=== PATIENT | female | born 1970 | race Caucasian/White ===

== ENCOUNTER 2019-04-17 21:41 | Emergency (ER) | payer MEDICARE, MEDICAID ==
[~2019-04-17] VITALS: Ht 154.9 cm; Wt 113.6 kg
[~2019-04-17 21:41] MED LIST: ASEN10TA8 SL; DOCU250C91 PO; FISH1CAP49 PO; FLUP5 PO; HYDR50CA10 PO; LEVO25TA9 PO; LISI-660 PO; METF-960 PO; PANT40TA25 PO; SIMV-259 PO; SITA50 PO
[2019-04-17 22:48] LABS: GLUCOSE,POINT OF CARE 125 MG/DL (70-110)
[2019-04-18] MEDS ORDERED: ACETAMINOPHEN 500 MG TABLET PO ONE (01:15)
[2019-04-18 03:00] LABS: BASOPHILS % (AUTO) 0.5 % (0.0-2.0); EOSINOPHILS % (AUTO) 1.6 % (1.0-6.0); HEMATOCRIT 43.4 % (36-46); HEMOGLOBIN 14.9 g/dL (12.0-16.0); LYMPHOCYTES # (AUTO) 1.5 K/uL (1.0-4.8); LYMPHOCYTES % (AUTO) 16.5 % (22.0-44.0); MEAN CORPUSCULAR HEMOGLOBIN 31.5 pg (26.0-34.0); MEAN CORPUSCULAR HGB CONC 34.4 G/dL (31.0-37.0); MEAN CORPUSCULAR VOLUME 92 fL (80-100); MONOCYTES # (AUTO) 0.7 K/uL (0.1-1.0); MONOCYTES % (AUTO) 7.4 % (2.0-9.0); NEUTROPHILS # (AUTO) 6.8 K/uL (1.8-7.7); PLATELET COUNT (AUTO) 279 K/uL (150-450); RED BLOOD CELL COUNT(AUTO) 4.74 MIL/uL (4.00-5.20); RED CELL DISTRIBUTION WIDTH 14.3 % (11.5-14.5)
[2019-04-18 03:12] LABS: ANION GAP 9 mmol/L (8-16); CALCIUM, TOTAL 9.2 mg/dL (8.8-10.5); CARBON DIOXIDE 27 mmol/L (22-29); CHLORIDE 102 mmol/L (98-107); CREATININE 0.77 mg/dL (0.60-1.30); GLOMERULAR FILTR. RATE CALC > 60 mL/min (>60); GLUCOSE,RANDOM 144 mg/dL (70-110); POTASSIUM 3.8 mmol/L (3.5-5.1); SODIUM SERUM 138 mmol/L (136-145); UREA NITROGEN, BLOOD 8 mg/dL (7-18)
[2019-04-18 03:24] LABS: ALANINE AMINOTRANSFERASE 20 U/L (12-78); ALBUMIN 3.3 g/dL (3.4-5.0); ALKALINE PHOSPHATASE 104 U/L (46-116); ASPARTATE AMINOTRANSFERASE 15 U/L (15-37); BILIRUBIN,TOTAL 0.5 mg/dL (0.1-1.0); HCG,QUANTITATIVE 2 mIU/mL (0-6); TOTAL PROTEIN, SERUM 7.3 g/dL (6.4-8.2)
[2019-04-18 05:54] VITALS: BP 122/68
== END 2019-04-18 05:59 | disposition home or self-care (01) ==
LOC: EMS 21:43
DX: F20.9 Schizophrenia, unspecified (principal); R51 Headache; M54.6 Pain in thoracic spine; E11.9 Type 2 diabetes mellitus without complications; I10 Essential (primary) hypertension; F17.210 Nicotine dependence, cigarettes, uncomplicated; Z79.899 Other long term (current) drug therapy; Z98.51 Tubal ligation status; Z59.0 Homelessness; W18.09XA Striking against other object with subsequent fall, initial encounter; Y93.89 Activity, other specified; Y92.89 Other specified places as the place of occurrence of the external cause; Y99.8 Other external cause status
CPT/HCPCS: 36415; 70450; 72128; 80053; 82962; 84702; 85025; 99284; G0480

== ENCOUNTER 2019-04-19 14:03 | Inpatient (IN) | payer MEDICARE, MEDICAID ==
[~2019-04-19] VITALS: Ht 170.2 cm; Wt 129.7 kg
[2019-04-19 16:33] VITALS: BP 108/58
[2019-04-19] MEDS ORDERED: ZOLPIDEM TARTRATE 10 MG TABLET PO PRN (16:45)
[2019-04-19] MEDS ORDERED: QUEtiapine FUMARATE 100 MG TABLET PO PRN (16:45)
[2019-04-19] MEDS ORDERED: PNEUMOCOCCAL VACCINE POLYVALENT 0.5 ML VIAL [PPSV23] IM ONE (17:00)
[2019-04-19 18:29] VITALS: BP 135/85
[2019-04-19] MEDS ORDERED: CloNIDine HCL 0.1 MG TABLET PO PRN (18:30)
[2019-04-19] MEDS ORDERED: IBUPROFEN 600 MG TABLET PO PRN (18:30)
[2019-04-19] MEDS ORDERED: BACITRACIN 28.4 GM OINTMENT TP PRN (18:30)
[2019-04-19] MEDS ORDERED: ALBUTEROL SULFATE HFA 90 MCG/PUFF 8 GM INHALER IH PRN (18:30)
[2019-04-19] MEDS ORDERED: PETROLATUM,WHITE 28 GM JELLY TP PRN (18:30)
[2019-04-19] MEDS ORDERED: MAGNESIUM HYDROXIDE SUSPENSION 30 ML UDCUP PO PRN (18:30)
[2019-04-19] MEDS ORDERED: LOPERAMIDE HCL 2 MG CAPSULE PO PRN (18:30)
[2019-04-19] MEDS ORDERED: ONDANSETRON HCL 4 MG TABLET PO PRN (18:30)
[2019-04-19] MEDS ORDERED: MAG HYDROX/AL HYDROX/SIMETH ES 30 ML SUSPENSION UDCUP PO PRN (18:30)
[2019-04-19] MEDS: LORazepam 2 MG TABLET PO PRN (18:42)
[2019-04-19] MEDS ORDERED: GLUCAGON,HUMAN RECOMBINANT 1 MG VIAL IM PRN (20:30)
[2019-04-19] MEDS: SIMVASTATIN 10 MG TABLET PO SCH (20:31)
[2019-04-19 20:49] LABS: GLUCOMETER DEV NAME(LOC) BV3S.; GLUCOSE,POINT OF CARE 135 MG/DL (70-110)
[2019-04-20] MEDS: LEVOTHYROXINE SODIUM 25 MCG TABLET PO SCH (06:24)
[2019-04-20 06:38] VITALS: BP 122/68
[2019-04-20 06:40] LABS: GLUCOMETER DEV NAME(LOC) BV3S.; GLUCOSE,POINT OF CARE 129 MG/DL (70-110)
[2019-04-20 08:01] VITALS: BP 155/83
[2019-04-20 08:54] LABS: ALANINE AMINOTRANSFERASE 23 U/L (12-78); ALKALINE PHOSPHATASE 99 U/L (46-116); ANION GAP 8 mmol/L (8-16); ASPARTATE AMINOTRANSFERASE 19 U/L (15-37); BILIRUBIN,TOTAL 0.3 mg/dL (0.1-1.0); CALCIUM, TOTAL 8.4 mg/dL (8.8-10.5); CARBON DIOXIDE 27 mmol/L (22-29); CHLORIDE 102 mmol/L (98-107); CHOL/HDL RATIO 5.9 (3.9-5.7); CHOLESTEROL 154 mg/dL (131-200); CREATININE 0.79 mg/dL (0.60-1.30); GLOMERULAR FILTR. RATE CALC > 60 mL/min (>60); GLUCOSE,RANDOM 193 mg/dL (70-110); HDL CHOLESTEROL 26 mg/dL (40-60); LDL CHOL (CALC.) 108 mg/dL (0-130); POTASSIUM 4.3 mmol/L (3.5-5.1); SODIUM SERUM 137 mmol/L (136-145); TRIGLYCERIDES 99 mg/dL (15-150); UREA NITROGEN, BLOOD 9 mg/dL (7-18)
[2019-04-20 09:01] LABS: BASOPHILS % (AUTO) 1.5 % (0.0-2.0); EOSINOPHILS % (AUTO) 0.8 % (1.0-6.0); HEMATOCRIT 44.7 % (36-46); HEMOGLOBIN 15.1 g/dL (12.0-16.0); LYMPHOCYTES # (AUTO) 1.3 K/uL (1.0-4.8); MEAN CORPUSCULAR HGB CONC 33.8 G/dL (31.0-37.0); MEAN CORPUSCULAR VOLUME 92 fL (80-100); MONOCYTES # (AUTO) 0.5 K/uL (0.1-1.0); MONOCYTES % (AUTO) 6.8 % (2.0-9.0); NEUTROPHILS # (AUTO) 4.9 K/uL (1.8-7.7); NEUTROPHILS % (AUTO) 71.9 % (40.0-70.0); PLATELET COUNT (AUTO) 232 K/uL (150-450); RED BLOOD CELL COUNT(AUTO) 4.86 MIL/uL (4.00-5.20)
[2019-04-20 09:14] LABS: HCG,QUANTITATIVE 2 mIU/mL (0-6)
[2019-04-20] MEDS: DOCUSATE SODIUM 100 MG CAPSULE PO SCH (09:31)
[2019-04-20] MEDS: SitaGLIPtin PHOSPHATE 50 MG TABLET PO SCH ×2 (09:33→16:18)
[2019-04-20] MEDS: MetFORMIN HCL 500 MG TABLET PO SCH ×2 (09:33→16:18)
[2019-04-20] MEDS: OMEPRAZOLE 20 MG CAPSULE PO SCH (09:33)
[2019-04-20] MEDS: OMEGA-3/DHA/EPA/FISH OIL 1,000 MG CAPSULE PO SCH (09:33)
[2019-04-20] MEDS: LISINOPRIL 5 MG TABLET PO SCH (09:33)
[2019-04-20] MEDS: LORazepam 2 MG TABLET PO PRN (09:59)
[2019-04-20 11:09] LABS: GLUCOMETER DEV NAME(LOC) BV3S.; GLUCOSE,POINT OF CARE 111 MG/DL (70-110)
[2019-04-20 11:30] LABS: APPEARANCE,URINE TURBID (CLEAR); BILIRUBIN,URINE NEGATIVE (NEGATIVE); GLUCOSE, URINE (UA) 250 mg/dL (NEGATIVE); KETONES,URINE NEGATIVE (NEGATIVE); LEUKOCYTE ESTERASE ,URINE NEGATIVE (NEGATIVE); NITRATE,URINE NEGATIVE (NEGATIVE); OCCULT BLOOD,URINE NEGATIVE (NEGATIVE); PROTEIN,URINE NEGATIVE (NEGATIVE)
[2019-04-20 11:34] LABS: AMPHET/METH SCREEN,URINE NEGATIVE (NEGATIVE); BARBITURATE SCREEN, URINE NEGATIVE (NEGATIVE); BENZODIAZEPINES SCREEN,URINE NEGATIVE (NEGATIVE); CANNABINOID SCREEN,URINE NEGATIVE (NEGATIVE); COCAINE SCREEN,URINE NEGATIVE (NEGATIVE); METHADONE SCREEN, URINE NEGATIVE (NEGATIVE); OPIATE SCREEN,URINE NEGATIVE (NEGATIVE)
[2019-04-20 11:35] LABS: PHENCYCLIDINE SCREEN,URINE NEGATIVE (NEGATIVE)
[2019-04-20 11:53] LABS: AMORPHOUS SEDIMENT,UR Many /LPF (None Seen); BACTERIA,URINE None Seen /HPF (None Seen); RBC,URINE None Seen /HPF (0-2); SQUAMOUS EPITHELIAL CELL,UR Moderate /LPF (None Seen); WBC,URINE None Seen /HPF (0-5)
[2019-04-20 13:00] VITALS: BP 138/74
[2019-04-20 16:03] VITALS: BP 116/65
[2019-04-20] MEDS: NYSTATIN 30 GM CREAM TP SCH (16:43)
[2019-04-20 16:49] LABS: GLUCOMETER DEV NAME(LOC) BV3S.; GLUCOSE,POINT OF CARE 120 MG/DL (70-110)
[2019-04-20] MEDS: QUEtiapine FUMARATE 200 MG ER TABLET PO SCH (20:07)
[2019-04-20] MEDS: SIMVASTATIN 10 MG TABLET PO SCH (20:07)
[2019-04-20 20:24] LABS: GLUCOMETER DEV NAME(LOC) BV3S.; GLUCOSE,POINT OF CARE 143 MG/DL (70-110)
[2019-04-20] MEDS: INSULIN LISPRO 100 UNITS/ML SQ PRN (21:41)
[2019-04-21 01:39] VITALS: BP 103/63
[2019-04-21] MEDS: LEVOTHYROXINE SODIUM 25 MCG TABLET PO SCH (06:29)
[2019-04-21 06:35] LABS: GLUCOMETER DEV NAME(LOC) BV3S.; GLUCOSE,POINT OF CARE 131 MG/DL (70-110)
[2019-04-21 08:08] VITALS: BP 116/65
[2019-04-21] MEDS: DOCUSATE SODIUM 100 MG CAPSULE PO SCH (09:06)
[2019-04-21] MEDS: OMEPRAZOLE 20 MG CAPSULE PO SCH (09:06)
[2019-04-21] MEDS: OMEGA-3/DHA/EPA/FISH OIL 1,000 MG CAPSULE PO SCH (09:06)
[2019-04-21] MEDS: LISINOPRIL 5 MG TABLET PO SCH (09:06)
[2019-04-21] MEDS: MetFORMIN HCL 500 MG TABLET PO SCH ×2 (09:06→16:12)
[2019-04-21] MEDS: SitaGLIPtin PHOSPHATE 50 MG TABLET PO SCH ×2 (09:07→17:23)
[2019-04-21] MEDS: NYSTATIN 30 GM CREAM TP SCH ×2 (09:07→17:30)
[2019-04-21 12:44] LABS: GLUCOMETER DEV NAME(LOC) BV3S.; GLUCOSE,POINT OF CARE 120 MG/DL (70-110)
[2019-04-21] MEDS: LORazepam 2 MG TABLET PO PRN (16:12)
[2019-04-21] MEDS: LITHIUM CARBONATE 300 MG CAPSULE PO SCH (17:00)
[2019-04-21] MEDS ORDERED: DIVALPROEX SODIUM 500 MG ER TABLET PO SCH (17:00)
[2019-04-21 17:19] LABS: GLUCOMETER DEV NAME(LOC) BV3S.; GLUCOSE,POINT OF CARE 151 MG/DL (70-110)
[2019-04-21] MEDS: ACETAMINOPHEN 325 MG TABLET PO PRN (17:52)
[2019-04-21] MEDS: SIMVASTATIN 10 MG TABLET PO SCH (20:49)
[2019-04-21] MEDS: QUEtiapine FUMARATE 200 MG ER TABLET PO SCH (20:49)
[2019-04-22 02:13] VITALS: BP 132/59
[2019-04-22] MEDS: ACETAMINOPHEN 325 MG TABLET PO PRN ×3 (02:14→13:32)
[2019-04-22] MEDS: BENZOCAINE/MENTHOL LOZENGE MM PRN ×2 (02:14→12:04)
[2019-04-22 04:22] VITALS: BP 113/78
[2019-04-22] MEDS: LEVOTHYROXINE SODIUM 25 MCG TABLET PO SCH (06:10)
[2019-04-22 06:15] LABS: GLUCOMETER DEV NAME(LOC) BV3S.; GLUCOSE,POINT OF CARE 163 MG/DL (70-110)
[2019-04-22] MEDS: INSULIN LISPRO 100 UNITS/ML SQ PRN ×2 (06:36→12:00)
[2019-04-22 07:54] LABS: APPEARANCE,URINE CLEAR (CLEAR); BILIRUBIN,URINE NEGATIVE (NEGATIVE); GLUCOSE, URINE (UA) NEGATIVE (NEGATIVE); KETONES,URINE NEGATIVE (NEGATIVE); LEUKOCYTE ESTERASE ,URINE NEGATIVE (NEGATIVE); NITRATE,URINE NEGATIVE (NEGATIVE); OCCULT BLOOD,URINE NEGATIVE (NEGATIVE); PH,URINE 5.5 (5.0-8.0); PROTEIN,URINE NEGATIVE (NEGATIVE); UROBILINOGEN,URINE 0.2 mg/dL (<=1.0)
[2019-04-22 08:45] VITALS: BP 97/63
[2019-04-22] MEDS: OMEGA-3/DHA/EPA/FISH OIL 1,000 MG CAPSULE PO SCH (08:45)
[2019-04-22] MEDS: MetFORMIN HCL 500 MG TABLET PO SCH ×2 (08:45→17:00)
[2019-04-22] MEDS: SitaGLIPtin PHOSPHATE 50 MG TABLET PO SCH ×2 (08:45→17:00)
[2019-04-22] MEDS: DOCUSATE SODIUM 100 MG CAPSULE PO SCH (08:45)
[2019-04-22] MEDS: OMEPRAZOLE 20 MG CAPSULE PO SCH (08:45)
[2019-04-22] MEDS: NYSTATIN 30 GM CREAM TP SCH ×2 (08:46→17:00)
[2019-04-22] MEDS: LITHIUM CARBONATE 300 MG CAPSULE PO SCH (08:54)
[2019-04-22] MEDS: LISINOPRIL 5 MG TABLET PO SCH (09:00)
[2019-04-22 11:45] LABS: GLUCOMETER DEV NAME(LOC) BV3S.; GLUCOSE,POINT OF CARE 157 MG/DL (70-110)
[2019-04-22 13:50] VITALS: BP 114/53
[2019-04-22 16:29] LABS: GLUCOSE,POINT OF CARE 120 MG/DL (70-110)
[2019-04-22] MEDS ORDERED: CEPHALEXIN MONOHYDRATE 500 MG CAPSULE PO SCH (19:45)
[2019-04-22] MEDS ORDERED: LEVOFLOXACIN 250 MG TABLET PO SCH (21:00)
[2019-04-22] MEDS: QUEtiapine FUMARATE 200 MG ER TABLET PO SCH (21:00)
[2019-04-22] MEDS ORDERED: PredniSONE 20 MG TABLET PO SCH (21:00)
[2019-04-22] MEDS: SIMVASTATIN 10 MG TABLET PO SCH (21:00)
[2019-04-28] MEDS ORDERED: PredniSONE 20 MG TABLET PO SCH (09:00)
[2019-05-03] MEDS ORDERED: PredniSONE 20 MG TABLET PO SCH (09:00)
== END 2019-04-22 23:02 | disposition short-term general hospital (02) | DRG 885 ==
LOC: B3A 16:24 → UNDOADMIN 16:24
PROVIDERS: ADMIT Psychiatry & Neurology Psychiatry; ATTEND Psychiatry & Neurology Psychiatry
DX: F20.0 Paranoid schizophrenia (principal); J18.9 Pneumonia, unspecified organism; R45.851 Suicidal ideations; Z68.41 Body mass index [BMI] 40.0-44.9, adult; F17.210 Nicotine dependence, cigarettes, uncomplicated; F12.90 Cannabis use, unspecified, uncomplicated; E78.5 Hyperlipidemia, unspecified; E66.01 Morbid (severe) obesity due to excess calories; E11.9 Type 2 diabetes mellitus without complications; E03.9 Hypothyroidism, unspecified; I10 Essential (primary) hypertension; K21.9 Gastro-esophageal reflux disease without esophagitis; K59.00 Constipation, unspecified; R45.850 Homicidal ideations; Z59.0 Homelessness; Z79.899 Other long term (current) drug therapy; Z98.51 Tubal ligation status; Z98.891 History of uterine scar from previous surgery
CPT/HCPCS: 80307; 83036

== ENCOUNTER 2019-05-14 22:47 | Emergency (ER) | payer MEDICARE, OTHER ==
[~2019-05-14] VITALS: Ht 170.2 cm; Wt 136.4 kg
[2019-05-14 23:19] LABS: GLUCOSE,POINT OF CARE 202 MG/DL (70-110)
[2019-05-15 00:41] LABS: BASOPHILS % (AUTO) 0.8 % (0.0-2.0); EOSINOPHILS % (AUTO) 3.2 % (1.0-6.0); HEMOGLOBIN 13.7 g/dL (12.0-16.0); LYMPHOCYTES # (AUTO) 5.1 K/uL (1.0-4.8); LYMPHOCYTES % (AUTO) 43.8 % (22.0-44.0); MEAN CORPUSCULAR HEMOGLOBIN 31.1 pg (26.0-34.0); MEAN CORPUSCULAR HGB CONC 33.3 G/dL (31.0-37.0); MEAN CORPUSCULAR VOLUME 93 fL (80-100); MONOCYTES # (AUTO) 0.6 K/uL (0.1-1.0); MONOCYTES % (AUTO) 5.1 % (2.0-9.0); NEUTROPHILS # (AUTO) 5.5 K/uL (1.8-7.7); NEUTROPHILS % (AUTO) 47.1 % (40.0-70.0); PLATELET COUNT (AUTO) 319 K/uL (150-450); RED BLOOD CELL COUNT(AUTO) 4.39 MIL/uL (4.00-5.20); RED CELL DISTRIBUTION WIDTH 15.4 % (11.5-14.5)
[2019-05-15 00:47] LABS: ANION GAP 5 mmol/L (8-16); CARBON DIOXIDE 30 mmol/L (22-29); CHLORIDE 105 mmol/L (98-107); CREATININE 0.74 mg/dL (0.60-1.30); GLOMERULAR FILTR. RATE CALC > 60 mL/min (>60); GLUCOSE,RANDOM 176 mg/dL (70-110); POTASSIUM 4.3 mmol/L (3.5-5.1); SODIUM SERUM 140 mmol/L (136-145); UREA NITROGEN, BLOOD 14 mg/dL (7-18)
[2019-05-15 00:54] LABS: ALANINE AMINOTRANSFERASE 17 U/L (12-78); ALKALINE PHOSPHATASE 102 U/L (46-116); ASPARTATE AMINOTRANSFERASE 11 U/L (15-37); BILIRUBIN,TOTAL 0.3 mg/dL (0.1-1.0); TOTAL PROTEIN, SERUM 7.7 g/dL (6.4-8.2)
[2019-05-15 01:01] LABS: APPEARANCE,URINE CLEAR (CLEAR); BILIRUBIN,URINE NEGATIVE (NEGATIVE); GLUCOSE, URINE (UA) NEGATIVE (NEGATIVE); KETONES,URINE NEGATIVE (NEGATIVE); LEUKOCYTE ESTERASE ,URINE NEGATIVE (NEGATIVE); NITRATE,URINE NEGATIVE (NEGATIVE); OCCULT BLOOD,URINE NEGATIVE (NEGATIVE); PH,URINE 5.5 (5.0-8.0); PROTEIN,URINE NEGATIVE (NEGATIVE)
[2019-05-15 01:06] LABS: AMPHET/METH SCREEN,URINE NEGATIVE (NEGATIVE); BARBITURATE SCREEN, URINE NEGATIVE (NEGATIVE); BENZODIAZEPINES SCREEN,URINE NEGATIVE (NEGATIVE); CANNABINOID SCREEN,URINE NEGATIVE (NEGATIVE); COCAINE SCREEN,URINE NEGATIVE (NEGATIVE); METHADONE SCREEN, URINE NEGATIVE (NEGATIVE); OPIATE SCREEN,URINE NEGATIVE (NEGATIVE); PHENCYCLIDINE SCREEN,URINE NEGATIVE (NEGATIVE)
[2019-05-15] MEDS ORDERED: ACETAMINOPHEN 325 MG TABLET PO ONE (04:15)
[2019-05-15 04:35] LABS: HCG,QUANTITATIVE 2 mIU/mL (0-6)
[2019-05-15 05:50] VITALS: BP 111/63
== END 2019-05-15 05:50 | disposition home or self-care (01) ==
LOC: EMS 22:48
DX: M54.5 Low back pain (principal); I10 Essential (primary) hypertension; E11.9 Type 2 diabetes mellitus without complications; F20.9 Schizophrenia, unspecified; F17.210 Nicotine dependence, cigarettes, uncomplicated; Z88.1 Allergy status to other antibiotic agents; Z88.8 Allergy status to other drugs, medicaments and biological substances; Z79.84 Long term (current) use of oral hypoglycemic drugs; W18.39XA Other fall on same level, initial encounter; Y93.01 Activity, walking, marching and hiking; Y92.89 Other specified places as the place of occurrence of the external cause; Y99.8 Other external cause status
CPT/HCPCS: 36415; 72100; 80053; 80307; 81003; 82962; 84702; 85025; 99284; G0480

== ENCOUNTER 2019-07-09 02:28 | Emergency (ER) | payer MEDICARE, OTHER ==
[~2019-07-09] VITALS: Ht 170.2 cm; Wt 122.7 kg
[2019-07-09 03:05] LABS: BASOPHILS % (AUTO) 0.9 % (0.0-2.0); EOSINOPHILS % (AUTO) 2.4 % (1.0-6.0); HEMATOCRIT 46.8 % (36-46); HEMOGLOBIN 15.8 g/dL (12.0-16.0); LYMPHOCYTES # (AUTO) 3.8 K/uL (1.0-4.8); LYMPHOCYTES % (AUTO) 35.1 % (22.0-44.0); MEAN CORPUSCULAR HEMOGLOBIN 31.7 pg (26.0-34.0); MEAN CORPUSCULAR HGB CONC 33.7 G/dL (31.0-37.0); MEAN CORPUSCULAR VOLUME 94 fL (80-100); MONOCYTES # (AUTO) 0.6 K/uL (0.1-1.0); MONOCYTES % (AUTO) 5.7 % (2.0-9.0); NEUTROPHILS # (AUTO) 6.1 K/uL (1.8-7.7); NEUTROPHILS % (AUTO) 55.9 % (40.0-70.0); PLATELET COUNT (AUTO) 274 K/uL (150-450); RED BLOOD CELL COUNT(AUTO) 4.98 MIL/uL (4.00-5.20); RED CELL DISTRIBUTION WIDTH 14.9 % (11.5-14.5)
[2019-07-09 03:12] LABS: ANION GAP 13 mmol/L (8-16); CALCIUM, TOTAL 9.3 mg/dL (8.8-10.5); CARBON DIOXIDE 26 mmol/L (22-29); CHLORIDE 103 mmol/L (98-107); CREATININE 0.69 mg/dL (0.60-1.30); GLOMERULAR FILTR. RATE CALC > 60 mL/min (>60); GLUCOSE,RANDOM 137 mg/dL (70-110); POTASSIUM 3.9 mmol/L (3.5-5.1); SODIUM SERUM 142 mmol/L (136-145); UREA NITROGEN, BLOOD 11 mg/dL (7-18)
[2019-07-09 03:17] LABS: ALANINE AMINOTRANSFERASE 18 U/L (12-78); ALBUMIN 3.7 g/dL (3.4-5.0); ALKALINE PHOSPHATASE 105 U/L (46-116); ASPARTATE AMINOTRANSFERASE 18 U/L (15-37); BILIRUBIN,TOTAL 0.6 mg/dL (0.1-1.0); TOTAL PROTEIN, SERUM 7.7 g/dL (6.4-8.2)
[2019-07-09 04:00] VITALS: BP 118/69
[2019-07-09 04:10] LABS: AMPHET/METH SCREEN,URINE NEGATIVE (NEGATIVE); BARBITURATE SCREEN, URINE NEGATIVE (NEGATIVE); BENZODIAZEPINES SCREEN,URINE NEGATIVE (NEGATIVE); CANNABINOID SCREEN,URINE NEGATIVE (NEGATIVE); COCAINE SCREEN,URINE NEGATIVE (NEGATIVE); METHADONE SCREEN, URINE NEGATIVE (NEGATIVE); OPIATE SCREEN,URINE NEGATIVE (NEGATIVE); PHENCYCLIDINE SCREEN,URINE NEGATIVE (NEGATIVE)
== END 2019-07-09 04:30 | disposition home or self-care (01) ==
LOC: EMS 02:29
DX: F20.9 Schizophrenia, unspecified (principal); E11.9 Type 2 diabetes mellitus without complications; E66.9 Obesity, unspecified; I10 Essential (primary) hypertension; F17.210 Nicotine dependence, cigarettes, uncomplicated; Z88.1 Allergy status to other antibiotic agents; Z88.5 Allergy status to narcotic agent; Z98.51 Tubal ligation status; Z79.899 Other long term (current) drug therapy; Z88.8 Allergy status to other drugs, medicaments and biological substances; Z68.41 Body mass index [BMI] 40.0-44.9, adult
CPT/HCPCS: 36415; 80053; 80307; 85025; 99284; G0480; 51701

== ENCOUNTER 2020-12-20 08:47 | Day surgery (SDC) | payer MEDICARE, OTHER ==
[2020-12-17 12:03] LABS: COVID AG,FIA SOURCE NASOPHARYNGEAL
[~2020-12-20] VITALS: Ht 170.2 cm; Wt 145.9 kg
[~2020-12-20 08:47] MED LIST changes: +ASEN10TA10 SL; -ASEN10TA8 SL; -FLUP5 PO; +FLUP5TAB15 PO; -HYDR50CA10 PO; +HYDR50CA9 PO; -LISI-660 PO; +LISI-892 PO; +PANT-31 PO; -PANT40TA25 PO; +SODIUM CHLORIDE 0.9% 1,000 ML ONE
[2020-12-20] MEDS ORDERED: LIDOCAINE/PF 2% 5 ML VIAL IM ONE (08:48)
[2020-12-20] MEDS ORDERED: PROPOFOL 1% 20 ML VIAL IVP ONE (08:48)
[2020-12-20] MEDS ORDERED: SODIUM CHLORIDE 0.9% 1,000 ML IV ONE (11:00)
== END 2020-12-20 14:20 | disposition home or self-care (01) ==
LOC: SURGERY 08:47
PROVIDERS: ATTEND Internal Medicine Gastroenterology
DX: Z12.11 Encounter for screening for malignant neoplasm of colon (principal); I10 Essential (primary) hypertension; E78.5 Hyperlipidemia, unspecified; F17.210 Nicotine dependence, cigarettes, uncomplicated; E11.9 Type 2 diabetes mellitus without complications; J44.9 Chronic obstructive pulmonary disease, unspecified; D17.5 Benign lipomatous neoplasm of intra-abdominal organs; E66.01 Morbid (severe) obesity due to excess calories; F32.9 Major depressive disorder, single episode, unspecified; Z98.51 Tubal ligation status; Z98.890 Other specified postprocedural states; Z83.3 Family history of diabetes mellitus; Z80.0 Family history of malignant neoplasm of digestive organs; Z79.899 Other long term (current) drug therapy
CPT/HCPCS: 87426; C9803; G0105; J2704; J3490; J7030

== ENCOUNTER 2021-09-24 15:46 | Emergency (ER) | payer MEDICARE, OTHER ==
[~2021-09-24] VITALS: Ht 170.2 cm; Wt 150.9 kg
[~2021-09-24 15:46] MED LIST changes: +METF-1211 PO; -METF-960 PO; -SODIUM CHLORIDE 0.9% 1,000 ML ONE
[2021-09-24] MEDS ORDERED: IBUPROFEN 600 MG TABLET PO ONE (16:30)
[2021-09-24 16:56] LABS: BILIRUBIN,URINE NEGATIVE (NEGATIVE); GLUCOSE, URINE (UA) >=1000 mg/dL (NEGATIVE); KETONES,URINE TRACE mg/dL (NEGATIVE); LEUKOCYTE ESTERASE ,URINE MODERATE (NEGATIVE); NITRATE,URINE NEGATIVE (NEGATIVE); OCCULT BLOOD,URINE MODERATE (NEGATIVE); PROTEIN,URINE POS 1+ (NEGATIVE)
[2021-09-24 17:10] VITALS: BP 130/81
[2021-09-24 17:10] LABS: APPEARANCE,URINE CLOUDY (CLEAR)
[2021-09-24 17:15] LABS: WBC,URINE 51-100 /HPF (0-5)
[2021-09-24 17:16] LABS: BACTERIA,URINE Rare /HPF (None Seen)
[2021-09-24] MEDS ORDERED: LEVOFLOXACIN 250 MG TABLET PO ONE (17:30)
== END 2021-09-24 17:53 | disposition home or self-care (01) ==
LOC: EMS 15:49
DX: N39.0 Urinary tract infection, site not specified (principal); F17.210 Nicotine dependence, cigarettes, uncomplicated; I10 Essential (primary) hypertension; F20.9 Schizophrenia, unspecified; Z98.51 Tubal ligation status
CPT/HCPCS: 81001; 82962; 84703; 87077; 87086; 87186; 99283

== ENCOUNTER 2024-05-16 08:32 | Day surgery (SDC) | payer MEDICARE, OTHER ==
[~2024-05-16] VITALS: Ht 170.2 cm; Wt 144.1 kg
[~2024-05-16 08:32] MED LIST changes: +ALBU18HF12 IH; -ASEN10TA10 SL; +ASEN10TA14 SL; +BUPR-514 PO; +DIPH50CA35 PO; +EMPA25TA3 PO; +FAMO20 PO; -FLUP5TAB15 PO; +FLUP5TAB31 PO; +FLUT1BLS15 IH; +FOLI-151 PO; +GABA-1181 PO; +HC A30CR13 TP; +HYDR50CA7 PO; -HYDR50CA9 PO; +ICOS1CAP PO; +LISI-893 PO; +SEMA0.258 AD; +SEMA3TAB4 PO; +SULF-261 PO
[2024-05-16] MEDS: SODIUM CHLORIDE 0.9% 1,000 ML IV ONE (09:21)
[2024-05-16 09:36] LABS: GLUCOMETER DEV NAME(LOC) SDS.; GLUCOSE,POINT OF CARE 251 MG/DL (70-110)
[2024-05-16] MEDS ORDERED: OXYGEN THERAPY IH SCH (10:00)
== END 2024-05-16 11:25 | disposition home or self-care (01) ==
LOC: SURGERY 08:32
PROVIDERS: ATTEND Specialist
DX: K21.9 Gastro-esophageal reflux disease without esophagitis (principal); M54.50 Low back pain, unspecified; E11.9 Type 2 diabetes mellitus without complications; J44.9 Chronic obstructive pulmonary disease, unspecified; I10 Essential (primary) hypertension; D64.9 Anemia, unspecified; F17.210 Nicotine dependence, cigarettes, uncomplicated; Z98.51 Tubal ligation status; Z98.891 History of uterine scar from previous surgery
CPT/HCPCS: 82962; 88305; 88312; 88313